=== PATIENT | female | born 2000 | race Caucasian/White ===

== ENCOUNTER 2020-06-20 09:35 | Emergency (ER) | payer OTHER, SELFPAY ==
[2020-06-20 09:35] VITALS: BP 122/72; PULSE 110; RESP 14; TEMP 36.8; O2SAT 97; BMI 32.0
--- NOTE | 2020-06-20 09:56 | ED_ITS ---
HPI - Recheck/Abnormal Lab/Rx General Chief Complaint: Recheck/Abnormal Lab/Rx Stated Complaint: bump in rib cage,back of knee pain Time Seen by Provider: 06/20/20 09:42 Source: patient Mode of arrival: Ambulatory Limitations: no limitations History of Present Illness HPI narrative: Patient is a 19-year-old female who presents with swelling in her left upper quadrant ongoing for last 2 weeks. She says it has been painful today. And hurts when she breathes. She has no redness she denies any injury it is tender to touch. Related Data Previous Rx's Medication Instructions Recorded ibuprofen 600 mg PO Q6-8H PRN #30 tab 06/20/20 Allergies Allergy/AdvReac Type Severity Reaction Status Date / Time No Known Drug Allergies Allergy Verified 06/20/20 09:48 Review of Systems Review of Systems ROS Unobtainable: All systems reviewed & are unremarkable except as noted in HPI and below Constitutional Constitutional: Denies chills, Denies fever(s), Denies lethargy and Denies weakness ENT Ears, Nose, Mouth, and Throat: Denies change in voice, Denies dizziness, Denies neck pain and Denies sore throat Cardiovascular Cardiovascular: Denies chest pain, Denies syncope, Denies irregular heart rhythm, Denies lightheadedness, Denies palpitations and Denies orthopnea Gastrointestinal Gastrointestinal: Reports as per HPI Genitourinary Genitourinary: Denies urinary incontinence Genitourinary: Denies urinary incontinence Musculoskeletal Musculoskeletal: Denies back pain and Denies neck pain Integumentary/Breasts Skin/Breast: Reports as per HPI, Denies pruritus, Denies erythema, Denies rash, Reports skin swelling and Denies wounds Neurologic Neurologic: Denies dizziness, Denies syncope and Denies weakness Endocrine Endocrine: Denies palpitations Patient History Social History Smoking Status: Never smoker Smoking Status: Never smoker alcohol intake frequency: 0-2 drinks per day Substance Use Type: does not use Exam Initial Vital Signs Initial Vital Signs: Vital Signs Temperature 98.3 F 06/20/20 09:35 Pulse Rate 110 H 06/20/20 09:35 Respiratory Rate 14 06/20/20 09:35 Blood Pressure 122/72 06/20/20 09:35 Pulse Oximetry 97 06/20/20 09:35 GENERAL: Well-appearing, well-nourished and in no acute distress. HEENT: Head atraumatic,EOMI, pupils reactive, face symmetric, moist mucous membranes CARDIOVASCULAR: Regular rate and rhythm without murmurs, rubs or gallops. RESPIRATORY: Breath sounds equal bilaterally, no wheezes rales or rhonchi. ABDOMEN: Soft, obvious swelling in left upper quadrant no erythema, no mass mild tenderness to touch EXTREMITIES: Normal range of motion, no clubbing or edema. Neurovascularly intact NEUROLOGICAL: Alert and oriented x4.Normal gait and speech. SKIN: Warm, dry, no laceration, no petechiae, no rashes or lesions. Course Orders Ordered: ED Orders 06/20/20 09:54 US abdomen complete Stat XR ribs LT min 3V w CXR1V Stat Discontinued Medications Ibuprofen (Ibuprofen 400 Mg Tablet) 800 mg PO NOW ONE Stop: 06/20/20 09:55 Last Admin: 06/20/20 10:41 Dose: 800 mg Documented by: NATALEE Vital Signs Vital signs: Vital Signs - 8 hr 06/20/20 09:35 06/20/20 11:22 Temperature 98.3 F Pulse Rate 110 H 76 Respiratory Rate 14 16 Blood Pressure 122/72 122/80 Pulse Oximetry 97 99 MDM - Recheck/Abnormal Lab/Rx Imaging Data Chest x-ray: Radiologist's Impression: PROCEDURE: XR RIBS LT MIN 3V W CXR1V INDICATIONS: swelling TECHNIQUE: 2 views of the left ribs were acquired, along with a single view chest. COMPARISON: None. FINDINGS: Surgical changes and devices: None. Bones and chest wall: No fractures or dislocations. No suspicious bony lesions. Overlying soft tissues appear unremarkable. Lungs and pleura: No pleural effusions or pneumothorax. Lungs appear clear. Mediastinum: Mediastinal contours appear normal. Heart size is normal. IMPRESSION: Chest without acute cardiopulmonary abnormalities. No acute osseous abnormality seen. Specifically, no evidence for acute, displaced rib fractures at the site of patient's pain. Dictated by: Chinmay Zafar M.D. on 06/20/2020 at 9:19 US - abdomen: Radiologist's Impression: PROCEDURE: US ABDOMEN COMPLETE INDICATIONS: LEFT UPPER QUADRANT SWELLING TECHNIQUE: Real-time scanning was performed of the abdominal and retroperitoneal organs, with image documentation. COMPARISON: None. FINDINGS: Liver: Liver is normal in size and homogeneous in echotexture. Gallbladder: Gallbladder is normal in sonographic appearance without gallstones, gallbladder wall thickening, pericholecystic fluid, or abnormal sonographic Hartley's. Biliary ducts: Intrahepatic bile ducts are non-dilated. Extrahepatic bile duct caliber measures 2 mm. Normal is 6-7 mm or less in diameter, or 10 mm or less post-cholecystectomy. Pancreas: Visualized portions of the pancreas are sonographically normal. Spleen: Spleen is normal in size and homogeneous in echotexture. Kidneys: Kidneys are normal in size and echotexture. Right kidney measures 9.4 cm long; left kidney measures 11.9 cm long. No hydronephrosis or nephrolithiasis. No solid masses. Aorta: Visualized aorta is normal in caliber at less than 3 cm. Iliacs: Proximal common iliac arteries are normal in caliber at less than 2.5 cm. IVC: Intrahepatic inferior vena cava is patent. Miscellaneous: No free abdominal fluid. No sonographic abnormalities identified over the patient directed area of concern over the left upper quadrant of the abdo men. IMPRESSION: Abdomen without sonographic abnormalities. Specifically, no sonographic abnormalities identified over the patient directed area of concern involving the left upper quadrant. Dictated by: Chinmay Zafar M.D. on 06/20/2020 at 9:56 MDM Narrative Medical decision making narrative: Patient has obvious left upper quadrant swelling possible lipoma also true mass is not felt. No erythema to suggest abscess. Ultrasound and x-ray are negative. At this time recommend PCP follow- up Discharge Plan Departure Patient Disposition: Home Clinical Impression: Abdominal or pelvic swelling, mass, or lump, left upper quadrant Instructions: Lipoma Activity Restrictions/Additional Instructions: *You have been diagnosed with swelling of left upper quadrant *What to do: At this time it is unclear what is causing your swelling. X-ray and ultrasound are overall reassuring. You need to follow-up with a primary care provider *Continue to take medications as directed Ibuprofen 600 mg every 6-8 hours if needed for [id number] pain *Follow up with your primary care provider in 2-3 days *Return to ER if you should have increasing pain, shortness of breath, or any new, worsening or concerning symptoms Prescriptions: New ibuprofen 600 mg tablet 600 mg PO Q6-8H PRN (Reason: fever or pain) Qty: 30 RF: 0 Referrals: [facility] [Outside]
[2020-06-20] MEDS: IBUPROFEN 400 MG TABLET 800 MG PO (10:41)
[2020-06-20 11:22] VITALS: BP 122/80; PULSE 76; RESP 16; O2SAT 99
== END 2020-06-20 11:22 | disposition home or self-care (01) ==
PROVIDERS: Emergency Provider Emergency Medicine
DX: R19.02 Left upper quadrant abdominal swelling, mass and lump (principal)
CPT/HCPCS: 71101; 76700; 99283

== ENCOUNTER → 2020-06-28 13:43 | Outpatient (CLI) | payer OTHER, MEDICAID, SELFPAY ==
[2020-06-28 15:35] LABS: Add Manual Diff / Slide Review NO; Basophils Absolute Auto 0 /uL (0-100); Basophils Percent Auto 0.4 % (0-2); Eosinophils Absolute Auto 100 /uL (0-450); Eosinophils Percent Auto 0.8 % (2-4); Hematocrit 37.6 % (36-46); Hemoglobin 12.2 g/dL (12.0-16.0); Lymphocytes Absolute Auto 3500 /uL (1100-4500); Lymphocytes Percent Auto 34.2 % (25-40); Mean Corpuscular HGB Conc 32.6 % (30-36); Mean Corpuscular Hemoglobin 28.3 PG (26-34); Mean Corpuscular Volume 86.9 fL (80-100); Monocytes Absolute Auto 700 /uL (0-900); Monocytes Percent Auto 7.1 % (3-14); Neutrophils Absolute Auto 5800 /uL (1500-7000); Neutrophils Percent Auto 57.5 % (50-75); Platelet Count 349 X10^3/uL (150-400); Red Blood Cell Count 4.33 X10^6/uL (4.0-5.2); Red Cell Distribution Width 16.8 % (11.6-14.8); White Blood Cell Count 10.1 X10^3/uL (4.5-11.0)
[2020-06-28 16:00] LABS: Alanine Aminotransferase 28 IU/L (<35); Albumin 4.6 g/dL (3.5-5.0); Albumin Globulin Ratio 1.4 (1.0-2.8); Alkaline Phosphatase 93 U/L (38-126); Aspartate Aminotransferase 37 IU/L (14-36); Bilirubin Total 0.2 mg/dL (0.2-1.3); Blood Urea Nitrogen 18 mg/dL (7-17); Calcium 9.5 mg/dL (8.4-10.2); Carbon Dioxide 27 mmol/L (22-32); Chloride 106 mmol/L (98-107); Estimated Glomerular Filt Rate > 60.0 mL/min (>60); Globulin 3.4 g/dL (1.7-4.1); Glucose 85 mg/dL (70-100); HEMOLYSIS < 15 (0-50); Lipase 61 U/L (23-300); Potassium 4.5 mmol/L (3.4-5.1); Sodium 141 mmol/L (137-145)
== END ==
PROVIDERS: PCP Registered Nurse; Referring Provider Registered Nurse; Visit Provider Registered Nurse
DX: R10.9 Unspecified abdominal pain (principal)
CPT/HCPCS: 36415; 80053; 83690; 85025

== ENCOUNTER → 2020-06-28 14:02 | Outpatient (CLI) | payer OTHER, MEDICAID, SELFPAY ==
--- NOTE | 2020-06-28 14:04 | DI.RAD.S_ITS ---
PROCEDURE: XR KNEE LT 3V INDICATIONS: left knee pain TECHNIQUE: 3 views of the knee were acquired. COMPARISON: None. FINDINGS: Bones: No fractures or dislocations. No suspicious bony lesions. Note is made of a linear calcific radiodensity dorsal to the upper 3rd of the patella on the lateral view, possibly within the joint space, and superimposed on the lateral facet of the patellofemoral joint trochlear groove margin. Soft tissues: No joint effusion. No suspicious soft tissue calcifications. IMPRESSION: Possible intra-articular loose body as discussed, measuring up to 1.4 cm in craniocaudad length and 2 mm in thickness. Knee MR arthrography may be warranted for most accurate assessment. Dictated by: Gumaro Gomez M.D. on 06/28/2020 at 15:16 Approved by: Gumaro Gomez M.D. on 06/28/2020 at 15:17
== END ==
PROVIDERS: PCP Registered Nurse; Referring Provider Registered Nurse; Visit Provider Registered Nurse
DX: M25.562 Pain in left knee (principal); R10.9 Unspecified abdominal pain
CPT/HCPCS: 36415; 73562; 80053; 83690; 85025

== ENCOUNTER → 2020-07-01 12:39 | Outpatient (CLI) | payer OTHER, MEDICAID, SELFPAY ==
--- NOTE | 2020-07-01 12:40 | DI.US.S_ITS ---
PROCEDURE: US ABDOMEN COMPLETE INDICATIONS: ABDOMINAL PAIN TECHNIQUE: Real-time scanning was performed of the abdominal and retroperitoneal organs, with image documentation. COMPARISON: [facility], US, US ABDOMEN COMPLETE, 06/20/2020, 10:21. FINDINGS: Liver: The liver demonstrates normal size. The liver demonstrates generalized moderately increased echogenicity, as on image 39. This decreases ultrasound sensitivity for detection of hepatic masses. Gallbladder: No findings of gallstones or sludge are seen. The gallbladder wall is not thickened, measuring 3 mm or less. No specific pericholecystic fluid is seen. The sonographic Hartley sign is negative. Biliary ducts: Intrahepatic bile ducts are non-dilated. Extrahepatic bile duct caliber measures 5 mm. Normal is 6-7 mm or less in diameter, or 10 mm or less post-cholecystectomy. Pancreas: Visualized portions of the pancreas are sonographically normal. Spleen: Spleen is normal in size and homogeneous in echotexture. Kidneys: Kidneys are normal in size and echotexture. Right kidney measures 9.7 cm long; left kidney measures 10.8 cm long. No hydronephrosis or nephrolithiasis. No solid masses. Aorta: Visualized aorta is normal in caliber at less than 3 cm. Iliacs: Proximal common iliac arteries are normal in caliber at less than 2.5 cm. IVC: Intrahepatic inferior vena cava is patent. Miscellaneous: No free abdominal fluid. Additional, dedicated ultrasound scanning is performed at the area of left upper quadrant pain, as identified by the patient. No focal ultrasound abnormalities are seen within this region. IMPRESSION: No gallstones are seen. The gallbladder demonstrates a normal sonographic appearance. No biliary dilatation is seen. Fatty liver infiltration. No left upper quadrant abnormality can be seen. Dictated by: Markie Babin M.D. on 07/01/2020 at 14:21 Approved by: Markie Babin M.D. on 07/01/2020 at 14:23
== END ==
PROVIDERS: PCP Registered Nurse; Referring Provider Registered Nurse; Visit Provider Registered Nurse
DX: R10.9 Unspecified abdominal pain (principal); K76.0 Fatty (change of) liver, not elsewhere classified
CPT/HCPCS: 76700

== ENCOUNTER 2020-08-02 15:39 | Emergency (ER) | payer OTHER, MEDICAID, SELFPAY ==
--- NOTE | 2020-08-02 17:04 | ED_ITS ---
HPI - Female Genitourinary General Chief complaint: Urogenital-Female Stated complaint: wants test Time Seen by Provider: 08/02/20 16:43 Source: patient Mode of arrival: Ambulatory Limitations: no limitations History of Present Illness HPI Narrative: Patient is a 19-year-old female requesting test. She states that her last menstrual period was last month. She thinks this menstrual period is on time but is having significant heavy cramps. Denies any vaginal bleeding. Related Data Previous Rx's Medication Instructions Recorded ibuprofen 600 mg PO Q6-8H PRN #30 tab 06/20/20 Allergies Allergy/AdvReac Type Severity Reaction Status Date / Time No Known Drug Allergies Allergy Verified 06/28/20 12:53 Review of Systems Review of Systems Narrative: GENERAL: Denies chills,fever HEENT: Denies throat pain RESPIRATORY: Denies dyspnea, cough, wheezing CARDIOVASCULAR: Denies chest pain, palpitations [employer]: See HPI GASTROINTESTINAL: Denies nausea, vomiting MUSCULOSKELETAL: Denies extremity pain, injury SKIN: No rash, no laceration, no pruritus NEUROLOGIC: Denies weakness, dizziness, headache, numbness 8 point review of systems is negative except for those stated above and HPI Patient History alcohol intake frequency: 0-2 drinks per day Substance Use Type: does not use Exam Initial Vital Signs Initial Vital Signs: Vital Signs Pulse Rate 91 H 08/02/20 18:09 Respiratory Rate 16 08/02/20 18:09 Blood Pressure 110/50 L 08/02/20 18:09 Pulse Oximetry 95 08/02/20 18:09 GENERAL: Well-appearing, well-nourished and in no acute distress. CARDIOVASCULAR: peripheral pulses in tact, cap refill <2 sec RESPIRATORY: No respiratory distress, speaks in full sentences without difficulty EXTREMITIES: Normal range of motion, no clubbing or edema. Neurovascularly intact NEUROLOGICAL: Cranial nerves II through XII grossly intact. Normal gait and speech. SKIN: Warm, dry, no petechiae, no rashes or lesions. Course Vital Signs Vital signs: Vital Signs - 8 hr 08/02/20 18:09 Pulse Rate 91 H Respiratory Rate 16 Blood Pressure 110/50 L Pulse Oximetry 95 MDM - Female Genitourinary Lab Data Attestation: I reviewed the patient's lab results. Labs: Point of Care Testing Test Results Negative Urine Dip Bedside Urine Glucose Negative Bedside Urine Bilirubin - Negative Bedside Urine Ketone - Negative Urine Specific [place] 1.030 Bedside Urine Occult Blood - Negative Bedside Urine pH 6 Bedside Urine Protein - Negative Bedside Urine Urobilinogen - Negative Bedside Urine Nitrite - Negative Bedside Urine Leukocytes - Negative Esterase Discharge Plan Departure Patient Disposition: Home Clinical Impression: Worried well Instructions: Learning About Control Pills Activity Restrictions/Additional Instructions: *You have been diagnosed with worried well *What to do: You are not . Please consider control of any form *Continue to take medications as directed *Follow up with your primary care provider in 2-3 days *Return to ER if you should have any new, worsening or concerning symptoms Prescriptions: No Action ibuprofen 600 mg tablet 600 mg PO Q6-8H PRN (Reason: fever or pain) Qty: 30 RF: 0 Referrals: Janes Barboza ARNP [Primary Care Provider] -
--- NOTE | 2020-08-02 17:33 | PC.NURSE ---
Pt denies urinary symptoms, wants test
[2020-08-02 18:09] VITALS: BP 110/50; PULSE 91; RESP 16; O2SAT 95
== END 2020-08-02 18:10 | disposition home or self-care (01) ==
PROVIDERS: Emergency Provider Emergency Medicine; PCP Registered Nurse
DX: N91.2 Amenorrhea, unspecified (principal)
CPT/HCPCS: 81003; 81025; 99281; 99282